=== PATIENT | female | born 1975 | race Caucasian/White ===

== ENCOUNTER → 2016-12-03 16:08 | Outpatient (CLI) | payer BC ==
[2014-02-09 16:52] VITALS: BMI 28.3
== END | disposition home or self-care (01) ==
LOC: D.MAMMO → D.US 11-18 09:30 → D.MAMMO 09:00
DX: R92.8 Other abnormal and inconclusive findings on diagnostic imaging of breast (principal)

== ENCOUNTER → 2017-01-01 16:58 | Outpatient (CLI) | payer BC ==
[2014-02-09 16:52] VITALS: BMI 28.3
== END | disposition home or self-care (01) ==
LOC: D.MAMMO 13:00
DX: N63 Unspecified lump in breast (principal)

== ENCOUNTER 2018-07-07 05:48 | Day surgery (SDC) | payer BC ==
[~2018-07-07] VITALS: Ht 165.1 cm; Wt 75.0 kg
--- NOTE | ~2018-07-07 | OP ---
PATIENT NAME: MINNA SANTANA MEDICAL RECORD: [id number] :73 [facility] DATE: SURGEON: ELVIS BENTLEY DO DATE OF OPERATION: 07/07/2018 PROCEDURE: EGD with balloon dilation and biopsies. INDICATIONS FOR PROCEDURE: Dysphagia, epigastric pain, heartburn. SCOPE: Olympus video gastroscope. MEDICATIONS: Propofol 300 mg IV per anesthesia. ESTIMATED BLOOD LOSS: Minimal. COMPLICATIONS: None. FINDINGS: Informed consent was given. The patient was made comfortable with the above medication. After reaching an adequate level of sedation by slow IV push, the patient was placed on her left side. The endoscope was advanced under direct visualization through the mouth to the second portion of the duodenum. The upper, middle, and lower thirds of the esophagus appeared normal. At the GE junction, there was a very mild stricture related to benign processes due to reflux. A couple cold forceps biopsies were taken from the GE junction and an 18-20 mm dilating CRE balloon was placed through the working channel of the endoscope. The stricture was dilated up to 19 mm maximum diameter successfully. The endoscope was advanced beyond the GE junction into the stomach and retroflexed to view the cardia, which appeared normal. The mucosa of the stomach appeared normal in its entirety. Random biopsies were taken to submit for histopathology and to rule out the presence of H. pylori. The endoscope was advanced beyond the pylorus into the duodenum where the bulb, first portion, and second portion of the duodenum appeared normal. Random biopsies were taken to submit for histology based on the patient's history of some altered bowels directly after eating. The endoscope was then withdrawn from the patient. The patient tolerated the procedure well and there were no complications. IMPRESSION: 1. LA class A reflux-induced esophagitis. 2. 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 3. Otherwise, normal EGD. PLAN AND RECOMMENDATIONS: 1. Discharge home when recovery parameters are met. 2. Follow up biopsy specimen results. 3. GERD precautions. 4. Continue current medications including Nexium 40 mg daily in the a.m. and Pepcid 20 mg in the evening. 5. We will order a barium esophagram regarding the patient's history of dysphagia, as well as her reflux and regurgitation symptoms. TRANSINT:[id number] Voice Confirmation ID: [id number] DOCUMENT ID: [id number] OPERATIVE REPORT [id number] MINNA SANTANA NATHAN A DO at 1148 CC: [id number] DICTATION DATE: 07/07/18 0855 [employer] CONSULTANT: 07/07/18 1139 [facility] 07/07/18 [place] [id number] [place] [id number]
[2018-07-07 06:07] LABS: HEMOGLOBIN 13.6 g/dL (12-16); MCV 88.3 fL (80.0-100.0); MEAN PLATELET VOLUME 10.3 fL (7.4-10.4); RBC 4.53 10x6/uL (4.00-5.40); RDW 13.5 % (11.5-14.5); WBC 6.6 10x3/uL (4.8-10.8)
[2018-07-07] MEDS ORDERED: NEXIUM20 MG PO (06:41)
[2018-07-07] MEDS ORDERED: DITROPAN X5 MG/BOTTL PO (06:41)
[2018-07-07] MEDS ORDERED: JUNEL FE 1.5-31 EACH PO (06:42)
[2018-07-07] MEDS ORDERED: PEPCID20 MG PO (06:42)
[2018-07-07] MEDS ORDERED: PROAIR HFA8.5 GM INH (06:42)
[2018-07-07 06:43] VITALS: Ht 165.1 cm; Wt 75.0 kg
[2018-07-07 07:10] LABS: HCG SERUM NEGATIVE (NEGATIVE)
== END 2018-07-07 10:10 | disposition home or self-care (01) ==
LOC: D.OPS 05:48
PROVIDERS: Anesthesiology
DX: R13.10 Dysphagia, unspecified (principal); R10.13 Epigastric pain; R12 Heartburn

== ENCOUNTER → 2018-07-12 07:57 | Outpatient (CLI) | payer BC ==
[2018-07-07 06:43] VITALS: BMI 27.5
[~2018-07-12 07:57] MED LIST: DITROPAN X5 MG/BOTTL PO; JUNEL FE 1.5-31 EACH PO; NEXIUM20 MG PO; PEPCID20 MG PO; PROAIR HFA8.5 GM INH
== END | disposition home or self-care (01) ==
LOC: D.RAD 07:57
DX: K21.9 Gastro-esophageal reflux disease without esophagitis (principal); R11.10 Vomiting, unspecified

== ENCOUNTER → 2019-01-03 14:44 | Outpatient (CLI) | payer BC ==
[2018-07-07 06:43] VITALS: BMI 27.5
== END | disposition home or self-care (01) ==
LOC: D.CT 14:44
DX: J45.901 Unspecified asthma with (acute) exacerbation (principal)

== ENCOUNTER → 2019-03-10 07:54 | Outpatient (CLI) | payer BC | END | disposition home or self-care (01) | LOC: D.RT 07:54 | DX: J45.909 Unspecified asthma, uncomplicated (principal) ==

== ENCOUNTER → 2019-03-10 16:47 | Outpatient (CLI) | payer BC ==
[2018-07-07 06:43] VITALS: BMI 27.5
== END | disposition home or self-care (01) ==
LOC: D.MAMMO 11:30
PROVIDERS: ATTEND Surgery
DX: Z12.31 Encounter for screening mammogram for malignant neoplasm of breast (principal)